=== PATIENT | female | born 1995 | race Two or more races ===

== ENCOUNTER 2017-03-14 08:12 | Emergency (ER) | payer MEDICAID, OTHER, SELFPAY ==
[2017-03-14] MEDS ORDERED: Ketorolac 30 MG/ML SDV IVPUSH ONE (08:58)
[2017-03-14] MEDS ORDERED: Lactated Ringers 1,000 ML IV ONE (08:59)
--- NOTE | 2017-03-14 09:06 | EDM.PDOC ---
ED HPI GENERAL MEDICAL PROBLEM - General Chief Complaint: Syncope Stated Complaint: FAINTED Time Seen by Provider: 03/14/17 08:50 Source of Information: Reports: Patient History Limitations: Reports: No Limitations - History of Present Illness INITIAL COMMENTS - FREE TEXT/NARRATIVE: 21 yo female awoke with a headache. 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 At work she fainted twice in close succession. Had nausea without vomiting. No nausea now. Denies recent fever or diarrhea. Was more fatigued than normal yesterday, otherwise normal. Has a hx of anemia. The 2nd time she fell today she hit her R occiput. Recalls her vision closing in on her both times before passing out. Was sweaty upon awakening. Headache is a 7/ 10 at this time. Last menses ended yesterday. Did eat breakfast today. CUEVAS is not worse after falling and hitting her head. 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 Frontal Head Pain Score (Numeric/FACES): 7 - Related Data Allergies Allergy/AdvReac Type Severity Reaction Status Date / Time No Known Allergies Allergy Verified 03/14/17 08:19 Home Meds: Home Meds Acetaminophen [Tylenol Extra Strength] 1,000 mg PO ASDIRECTED PRN 03/14/17 [ History] Past Medical History - Past Health History Medical/Surgical History: Denies Medical/Surgical History 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: , 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 Other OB/BYN History: when she was 16 - Infectious Disease History Infectious Disease History: Reports: Chicken pox - Past Surgical History HEENT Surgical History: Reports: Oral surgery Social & Family History - Family History Family Medical History: Noncontributory OBGYN: Reports: Psychiatric: Reports: ADHD Other Psychiatric Family History: brother has ADHD Other Endocrine/Metabolic Family History: mom side has diabetest but unsure what type - Tobacco Use Smoking Status *Q: Current Every Day Smoker Years of Tobacco use: 3 Packs/Tins Daily: 0.5 Used Tobacco, but Quit: No Second Hand Smoke Exposure: Yes - Caffeine Use Caffeine Use: Reports: None - Alcohol Use Days Per Week of Alcohol Use: 2 Number of Drinks Per Day: 4 Total Drinks Per Week: 8 - Recreational Drug Use Recreational Drug Use: No ED ROS GENERAL - Review of Systems Review Of Systems: See Below Constitutional: Reports: No Symptoms HEENT: Reports: No Symptoms Respiratory: Reports: No Symptoms Cardiovascular: Reports: Lightheadedness Endocrine: Reports: No Symptoms GI/Abdominal: Reports: No Symptoms : Reports: No Symptoms Musculoskeletal: Reports: No Symptoms Skin: Reports: No Symptoms Neurological: Reports: Headache - Physical Exam Exam: See Below Exam Limited By: No Limitations General Appearance: Alert, WD/WN, No Apparent Distress Eye Exam: bilateral eye: EOMI, normal inspection, PERRL Ears: Normal External Exam, Normal Canal, Hearing Grossly Normal, Normal TMs Nose: Normal Inspection, Normal Mucosa, No Blood Throat/Mouth: Normal inspection, Normal lips, Normal teeth, Normal oropharynx, Normal voice, No airway compromise Head Exam: normocephalic, scalp hematoma (small over occiput on the right side.) Neck: Normal Inspection, Supple, Other (minimal stiffness) Respiratory/Chest: No Respiratory Distress, Lungs Clear, Normal Breath Sounds, No Accessory Muscle Use Cardiovascular: Regular Rate, Rhythm, No Edema GI/Abdominal: Normal Bowel Sounds, Soft, Non-Tender, No Distention Neuro Exam (Abbreviated): alert, oriented, CN II-XII intact, normal cognition, normal gait, normal reflexes, no motor/sensory deficits, other (small bump R occiput on palpation.) Back Exam: normal inspection, full range of motion. No: CVA tenderness (R), CVA tenderness (L) Extremities: normal inspection, normal range of motion, non-tender, no pedal edema Psychiatric: normal affect, normal mood Skin Exam: Warm, Dry, Intact, Normal color, No rash Course - Vital Signs Text/Narrative:: LR 1000 ml IV, Toradol 30 mg IV-CUEVAS minimally improved. Tramadol 100 mg po given with improvement in CUEVAS Head CT-negative. principal product manager reveals a sinus arrhythmia with HR's from upper 40's to 60 at rest. Asymptomatic with this. Urine noted per nursing to be clear and dilute(colorless). Orthostats after a liter of LR-21 point increase in HR going from lying to standing noted. Last Recorded V/S: Last Vital Signs Temp 36.5 C 03/14/17 08:21 Pulse 53 L 03/14/17 11:09 Resp 15 03/14/17 11:09 BP 91/50 L 03/14/17 11:09 Pulse Ox 99 03/14/17 11:09 Orthostatic Blood Pressure [ 111/76 Standing] Orthostatic Blood Pressure [ 94/63 Sitting] Orthostatic Blood Pressure [ 123/68 Supine] - Orders/Labs/Meds Orders: Active Orders 24 hr Category Date Time Status Accu Check [Blood Glucose Check, Bedside] [RC] ONETIME Care 03/14/17 08:58 Active Orthostatic Vital Signs [RC] ASDIRECTED Care 03/14/17 09:57 Active Head wo Cont [CT] Stat Exams 03/14/17 10:21 Taken Labs: Laboratory Tests 03/14/17 03/14/17 03/14/17 Range/Units 09:07 09:10 09:10 Hgb 14.0 (11.5-15.5) g/dL Sodium 139 (135-145) mmol/L Potassium 3.9 (3.5-5.3) mmol/L Chloride 105 D (100-110) mmol/L Carbon Dioxide 25 (23-29) mmol/L BUN 19 (5-20) mg/dL Creatinine 0.6 (0.6-1.3) mg/dL Est Cr Clr Drug Dosing 106.53 mL/min Estimated GFR (MDRD) > 60 (>60) BUN/Creatinine Ratio 31.7 H (9-20) Glucose 99 (80-116) mg/dL POC Glucose (80-116) mg/dL Calcium 9.5 (8.6-10.2) mg/dL Urine HCG, Qual Negative (NEGATIVE) 03/14/17 Range/Units 09:14 Hgb (11.5-15.5) g/dL Sodium (135-145) mmol/L Potassium (3.5-5.3) mmol/L Chloride (100-110) mmol/L Carbon Dioxide (23-29) mmol/L BUN (5-20) mg/dL Creatinine (0.6-1.3) mg/dL Est Cr Clr Drug Dosing mL/min Estimated GFR (MDRD) (>60) BUN/Creatinine Ratio (9-20) Glucose (80-116) mg/dL POC Glucose 102 (80-116) mg/dL Calcium (8.6-10.2) mg/dL Urine HCG, Qual (NEGATIVE) Meds: Medications Discontinued Medications Generic Name Dose Route Start Last Admin Trade Name [place] PRN Reason Stop Dose Admin Lactated Ringer's 1,000 mls @ 1,000 mls/hr 03/14/17 08:59 03/14/17 09:23 Ringers, Lactated IV 03/14/17 09:58 1,000 mls/hr BOLUS ONE Administration Ketorolac Tromethamine 30 mg 03/14/17 08:58 03/14/17 09:30 Toradol IVPUSH 03/14/17 08:59 30 mg ONETIME ONE Administration Tramadol HCl 100 mg 03/14/17 10:53 03/14/17 11:07 Ultram PO 03/14/17 10:54 100 mg ONETIME ONE Administration Departure - Departure Time of Disposition: 12:00 Disposition: Home, Self-Care 01 Condition: good Clinical Impression: Orthostasis Headache Qualifiers: Headache type: unspecified Headache chronicity pattern: acute headache Intractability: not intractable Qualified Code(s): R51 - Headache - Discharge Information Forms: ED Department Discharge - My Orders Last 24 Hours: My Active Orders 03/14/17 08:58 Accu Check [Blood Glucose Check, Bedside] [RC] ONETIME 03/14/17 09:57 Orthostatic Vital Signs [RC] ASDIRECTED 03/14/17 10:21 Head wo Cont [CT] Stat - Assessment/Plan Last 24 Hours: My Active Orders 03/14/17 08:58 Accu Check [Blood Glucose Check, Bedside] [RC] ONETIME 03/14/17 09:57 Orthostatic Vital Signs [RC] ASDIRECTED 03/14/17 10:21 Head wo Cont [CT] Stat
[2017-03-14] MEDS ORDERED: traMADol 50 MG Tab PO ONE (10:53)
[2017-03-14 11:45] VITALS: BP 96/57
--- NOTE | 2017-03-18 09:48 | CT ---
INDICATION: Headache with syncope. CT HEAD WITHOUT CONTRAST: Serial contiguous 2.5 and 5 mm sections were obtained through the brain without contrast only revealing no shift of midline structures, ventricular abnormalities, or abnormal areas of density. No abnormality of the cranium was identified. Visualized paranasal sinuses appeared clear. IMPRESSION: Normal CT of the brain without contrast only. If symptoms persist, additional examination such as CT head with contrast or MRI may be of further diagnostic benefit. Total exam DLP = 845.81 mGy-cm. Report was called to Dr. Phillip soon after the examination was completed, 2016. [facility]
== END 2017-03-14 13:00 | disposition home or self-care (01) ==
LOC: FB.ED 08:12
DX: R51 Headache (principal); F17.210 Nicotine dependence, cigarettes, uncomplicated; Z98.890 Other specified postprocedural states
CPT/HCPCS: 36415; 70450; 80048; 81025; 82962; 85018; 96361; 96374; 99284; A9270; J1885; J7120

== ENCOUNTER 2017-08-22 03:26 | Emergency (ER) | payer SELFPAY ==
--- NOTE | 2017-08-22 04:08 | EDM.PDOC ---
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 AB1. No trauma. vag bleed started spontaneously. No N/V/D or dizziness. No other acute medical issues. BP 131/78 pulse 81, RR 18 Temp 36.5 Pulse ox 100 on RA Onset: Sudden Onset Date: 08/21/17 Onset Time: 22:00 Duration: Hour(s):, Intermittent Location: Reports: Pelvis Quality: Reports: Pressure Severity: Mild Improves with: Reports: Rest Worsens with: Reports: Movement Context: Reports: Other () Associated Symptoms: Reports: No Other Symptoms Lower abdomen Pain Score (Numeric/FACES): 4 - Related Data Allergies Allergy/AdvReac Type Severity Reaction Status Date / Time No Known Allergies Allergy Verified 08/22/17 03:35 Home Meds: Home Meds Acetaminophen [Tylenol Extra Strength] 1,000 mg PO ASDIRECTED PRN 03/14/17 [ History] Vit #76/Iron,Carb/Fa [Prenatabs Rx] 1 tab DAILY 08/22/17 [History] Vitamin B6-pyridOXINE 100 mg PO DAILY 08/22/17 [History] diphenhydrAMINE HCl [Benadryl] 25 mg PO BEDTIME 08/22/17 [History] diphenhydrAMINE HCl [Unisom] 50 mg PO BEDTIME PRN 08/22/17 [History] Past Medical History - Past Health History Medical/Surgical History: Denies Medical/Surgical History 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 - Infectious Disease History Infectious Disease History: Reports: Chicken Pox - Past Surgical History HEENT Surgical History: Reports: Oral Surgery Musculoskeletal Surgical History: Reports: None Social & Family History - Family History Family Medical History: Noncontributory OBGYN: Reports: Psychiatric: Reports: ADHD Other Psychiatric Family History: brother has ADHD Other Endocrine/Metabolic Family History: mom side has diabetest but unsure what type - Tobacco Use Smoking Status *Q: Former Smoker Years of Tobacco use: 2 Packs/Tins Daily: 0.5 Used Tobacco, but Quit: Yes Month Tobacco Last Used: nov Second Hand Smoke Exposure: Yes - Caffeine Use Caffeine Use: Reports: Tea - Alcohol Use Days Per Week of Alcohol Use: 2 Number of Drinks Per Day: 4 Total Drinks Per Week: 8 - Recreational Drug Use Recreational Drug Use: No ED ROS GENERAL - Review of Systems Review Of Systems: See Below Constitutional: Reports: No Symptoms HEENT: Reports: No Symptoms Respiratory: Reports: No Symptoms Cardiovascular: Reports: No Symptoms Endocrine: Reports: No Symptoms GI/Abdominal: Reports: No Symptoms : Reports: No Symptoms Musculoskeletal: Reports: No Symptoms Skin: Reports: No Symptoms Neurological: Reports: No Symptoms Psychiatric: Reports: No Symptoms Hematologic/Lymphatic: Reports: No Symptoms Immunologic: Reports: No Symptoms ED EXAM - Physical Exam Exam: See Below Exam Limited By: No Limitations General Appearance: Alert, WD/WN, Mild Distress Eye Exam: Bilateral Eye: Normal Inspection Ears: Normal External Exam Nose: Normal Inspection Throat/Mouth: Normal Inspection, Normal Lips, Normal Teeth Head: Atraumatic, Normocephalic Neck: Normal Inspection, Supple, Non-Tender Respiratory/Chest: No Respiratory Distress, Lungs Clear, Normal Breath Sounds Cardiovascular: Normal Peripheral Pulses, Regular Rate, Rhythm, No Edema, No Gallop GI/Abdominal Exam: Normal Bowel Sounds, Soft, Non-Tender Rectal Exam: Deferred (Female) Exam: Normal External Exam, Deferred for Placenta Previa, Vaginal Bleeding Heart Tones: Not [place] Back Exam: Normal Inspection, Full Range of Motion Extremities: Normal Inspection, Normal Range of Motion, Non-Tender, No Pedal Edema Neurological: Alert, Oriented, CN II-XII Intact, Normal Cognition, Normal Gait Psychiatric: Normal Affect, Normal Mood Skin Exam: Warm, Dry, Intact, Normal Color, No Rash Lymphatic: No Adenopathy Course - Vital Signs Text/Narrative:: 22 y.o.w.f came to the ed due to painful vag bleed LNMP June 21. AB1. No trauma. vag bleed started spontaneously. No N/V/D or dizziness. No other acute medical issues. BP 131/78 pulse 81, RR 18 Temp 36.5 Pulse ox 100 on RA PE: WNWD F with painful vag bleed 9 wks , FHT not obtained. Pelvic exam: Nl introitus, CMT not checked due to pos.placenta previa. Cervical ass is closed, active cervical bleed. Labs: CBC Nl, INR Nl, Na 138 and K 3.6 nl HCG quant: > Impression: Threatening miscarriage, painful vag bleed Tx: Vicodin Reexam: Improved Plan: Pelvic US in am, not available now, D/C with instructions Last Recorded V/S: Last Vital Signs Temp 36.5 C 08/22/17 03:26 Pulse 81 08/22/17 03:26 Resp 18 08/22/17 04:49 BP 102/58 L 08/22/17 04:49 Pulse Ox 100 08/22/17 04:49 - Orders/Labs/Meds Labs: Laboratory Tests 08/22/17 08/22/17 08/22/17 Range/Units 03:50 03:50 03:50 WBC 8.1 (4.5-12.0) X10-3/uL RBC 4.60 (3.23-5.20) x10(6)uL Hgb 13.4 (11.5-15.5) g/dL Hct 39.9 (30.0-51.3) % MCV 86.8 (80-96) fL MCH 29.1 (27.7-33.6) pg MCHC 33.6 (32.2-35.4) g/dL RDW 12.4 (11.5-15.5) % Plt Count 312 (125-369) X10(3)uL MPV 9.4 (7.4-10.4) fL Neut % (Auto) 55.4 (46-82) % Lymph % (Auto) 34.8 (13-37) % [place] % (Auto) 7.4 (4-12) % Eos % (Auto) 1 (1.0-5.0) % Baso % (Auto) 1 (0-2) % Neut # (Auto) 4.5 (1.6-8.3) # Lymph # (Auto) 2.8 (0.6-5.0) # [place] # (Auto) 0.6 (0.0-1.3) # Eos # (Auto) 0.1 (0.0-0.8) # Baso # (Auto) 0.1 (0.0-0.2) # PT 10.5 (8.7-11.1) INR 1.04 (0.89-1.13) Sodium 138 (135-145) mmol/L Potassium 3.6 (3.5-5.3) mmol/L Chloride 108 (100-110) mmol/L Carbon Dioxide 20 L (23-29) mmol/L BUN 14 (5-20) mg/dL Creatinine 0.6 (0.6-1.3) mg/dL Est Cr Clr Drug Dosing 105.64 mL/min Estimated GFR (MDRD) > 60 (>60) BUN/Creatinine Ratio 23.3 H (9-20) Glucose 107 (80-116) mg/dL Calcium 9.3 (8.6-10.2) mg/dL HCG, Quant (2.0 - ) mIU/mL 08/22/17 Range/Units 03:50 WBC (4.5-12.0) X10-3/uL RBC (3.23-5.20) x10(6)uL Hgb (11.5-15.5) g/dL Hct (30.0-51.3) % MCV (80-96) fL MCH (27.7-33.6) pg MCHC (32.2-35.4) g/dL RDW (11.5-15.5) % Plt Count (125-369) X10(3)uL MPV (7.4-10.4) fL Neut % (Auto) (46-82) % Lymph % (Auto) (13-37) % [place] % (Auto) (4-12) % Eos % (Auto) (1.0-5.0) % Baso % (Auto) (0-2) % Neut # (Auto) (1.6-8.3) # Lymph # (Auto) (0.6-5.0) # [place] # (Auto) (0.0-1.3) # Eos # (Auto) (0.0-0.8) # Baso # (Auto) (0.0-0.2) # PT (8.7-11.1) INR (0.89-1.13) Sodium (135-145) mmol/L Potassium (3.5-5.3) mmol/L Chloride (100-110) mmol/L Carbon Dioxide (23-29) mmol/L BUN (5-20) mg/dL Creatinine (0.6-1.3) mg/dL Est Cr Clr Drug Dosing mL/min Estimated GFR (MDRD) (>60) BUN/Creatinine Ratio (9-20) Glucose (80-116) mg/dL Calcium (8.6-10.2) mg/dL HCG, Quant (2.0 - ) mIU/mL Meds: Medications Discontinued Medications Generic Name Dose Route Start Last Admin Trade Name Freq PRN Reason Stop Dose Admin Hydrocodone Bitart/Acetaminophen 1 tab 08/22/17 04:16 08/22/17 04:24 [place] 325-5 Mg PO 08/22/17 04:17 1 tab ONETIME ONE Administration Departure - Departure Time of Disposition: 04:38 Disposition: Home, Self-Care 01 Condition: Good Clinical Impression: Vagina bleeding, Miscarriage, threatened, early - Discharge Information Instructions: Threatened Miscarriage, [id number] Referrals: PCP,None [Primary Care Provider] - Forms: ED Department Discharge Additional Instructions: Pelvic rest. Vicodin for severe pain every 4 hours as needed, for mild to moderate pain, may take Tylenol 650mg every 4 hours as needed (No more than 6 tablets/24hrs). Pelvic US in am, Xray dept will call you with time. Please follow up with your regular MD at clinic after ultrasound, call for appt. Please come back to the ed if your symptoms get worse acutely.
[2017-08-22] MEDS ORDERED: Acetaminophen/HYDROcodone 325-5 MG Tab PO ONE ×2 (04:16→04:23)
[2017-08-22 04:50] VITALS: BP 102/58
== END 2017-08-22 05:06 | disposition home or self-care (01) ==
LOC: FB.ED 03:26
DX: O20.0 Threatened abortion (principal); Z3A.09 9 weeks gestation of pregnancy; Z87.891 Personal history of nicotine dependence
CPT/HCPCS: 36415; 80048; 84702; 85025; 85610; 99284; A9270

== ENCOUNTER 2017-08-22 10:45 | Emergency (ER) | payer SELFPAY ==
--- NOTE | 2017-08-22 11:04 | EDM.PDOC ---
ED HPI GENERAL MEDICAL PROBLEM - General Stated Complaint: MISCARRIAGE Time Seen by Provider: 08/22/17 10:45 Source of Information: Reports: Patient, Family - History of Present Illness Onset: Today Onset Date: 08/21/17 Onset Time: 22:00 Duration: Hour(s):, Getting Worse Location: Reports: Pelvis Quality: Reports: Dull, Pressure, Throbbing Severity: Moderate Improves with: Reports: Rest Worsens with: Reports: Movement Context: Reports: Other () Associated Symptoms: Reports: No Other Symptoms - Related Data Allergies Allergy/AdvReac Type Severity Reaction Status Date / Time No Known Allergies Allergy Verified 08/22/17 11:03 Home Meds: Home Meds Hydrocodone/Acetaminophen [Vicodin 5-300 mg Tablet] 1 each PO 08/22/17 [History] Past Medical History - Past Health History Medical/Surgical History: Denies 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 - Infectious Disease History Infectious Disease History: Reports: Chicken Pox - Past Surgical History HEENT Surgical History: Reports: Oral Surgery Musculoskeletal Surgical History: Reports: None Social & Family History - Family History Family Medical History: Noncontributory OBGYN: Reports: Psychiatric: Reports: ADHD Other Psychiatric Family History: brother has ADHD Other Endocrine/Metabolic Family History: mom side has diabetest but unsure what type - Tobacco Use Smoking Status *Q: Former Smoker Years of Tobacco use: 2 Packs/Tins Daily: 0.5 Used Tobacco, but Quit: Yes Month Tobacco Last Used: nov Second Hand Smoke Exposure: Yes - Caffeine Use Caffeine Use: Reports: Tea - Alcohol Use Days Per Week of Alcohol Use: 2 Number of Drinks Per Day: 4 Total Drinks Per Week: 8 - Recreational Drug Use Recreational Drug Use: No ED ROS GENERAL - Review of Systems Review Of Systems: See Below Constitutional: Reports: No Symptoms HEENT: Reports: No Symptoms Respiratory: Reports: No Symptoms Cardiovascular: Reports: No Symptoms Endocrine: Reports: No Symptoms GI/Abdominal: Reports: No Symptoms : Reports: Pain (vag bleed with pain) Musculoskeletal: Reports: No Symptoms Skin: Reports: No Symptoms Neurological: Reports: No Symptoms Psychiatric: Reports: No Symptoms Hematologic/Lymphatic: Reports: No Symptoms Immunologic: Reports: No Symptoms ED EXAM - Physical Exam Exam: See Below Exam Limited By: No Limitations General Appearance: Alert, WD/WN, Moderate Distress Eye Exam: Bilateral Eye: Normal Inspection Ears: Normal External Exam Nose: Normal Inspection Throat/Mouth: Normal Inspection Head: Atraumatic, Normocephalic Neck: Normal Inspection, Supple Respiratory/Chest: No Respiratory Distress, Lungs Clear, Normal Breath Sounds Cardiovascular: Normal Peripheral Pulses, Regular Rate, Rhythm, No Edema GI/Abdominal Exam: Normal Bowel Sounds, Soft, Non-Tender, No Organomegaly Rectal Exam: Normal Exam, Deferred (Female) Exam: Deferred for Placenta Previa (see not e from this am) Heart Tones: Not [place] Back Exam: Normal Inspection, Full Range of Motion Extremities: Normal Inspection, Normal Range of Motion Neurological: Alert, Oriented, CN II-XII Intact, Normal Cognition, Normal Gait Psychiatric: Normal Affect, Normal Mood Skin Exam: Warm, Dry, Intact, Normal Color, No Rash Lymphatic: No Adenopathy Course - Vital Signs Text/Narrative:: 09.[address] Dumont, DEVOPS DEVELOPER: Will see her at the ED at [place] Last Recorded V/S: Last Vital Signs Temp 36.8 C 08/22/17 11:05 Pulse 72 08/22/17 11:05 Resp 16 08/22/17 11:05 BP 114/80 08/22/17 11:05 Pulse Ox 100 08/22/17 11:05 - Orders/Labs/Meds Meds: Medications Discontinued Medications Generic Name Dose Route Start Last Admin Trade Name Travisq PRN Reason Stop Dose Admin Hydrocodone Bitart/Acetaminophen 1 tab 08/22/17 11:14 08/22/17 11:18 [place] 325-5 Mg PO 08/22/17 11:15 1 tab ONETIME ONE Administration Departure - Departure Time of Disposition: 12:19 Disposition: DC/Tfer to Critical Access 66 Condition: Fair Clinical Impression: Vagina bleeding, Miscarriage, threatened, early Qualifiers: Weeks of gestation: less than 8 weeks Qualified Code(s): Z3A.01 - Less than 8 weeks gestation of - Discharge Information Referrals: Nohemi Leone PA-C [Primary Care Provider] - Additional Instructions: You refused to go by EMS to the ED in [place]. Please go directly to the ED at [place], [place]. You will see Dr. Mikelson, OG/SEGMENT PRODUCER, Please no food till seen by the Doctor.
[2017-08-22] MEDS ORDERED: Acetaminophen/HYDROcodone 325-5 MG Tab PO ONE (11:14)
[2017-08-22 13:29] VITALS: BP 105/65
== END 2017-08-22 12:25 | disposition critical access hospital (66) ==
LOC: FB.ED 10:45
DX: O20.0 Threatened abortion (principal); Z3A.01 Less than 8 weeks gestation of pregnancy
CPT/HCPCS: 99284; A9270; 99285

== ENCOUNTER 2019-02-24 20:50 | Emergency (ER) | payer SELFPAY ==
[2019-02-24] MEDS ORDERED: Sodium Chloride 0.9% 1,000 ML IV ONE (21:15)
[2019-02-24] MEDS ORDERED: diphenhydrAMINE 50 MG/ML SDV IVPUSH ONE (21:15)
[2019-02-24] MEDS ORDERED: Prochlorperazine 10 MG in Sodium Chloride 0.9% 50 ML IV ONE (21:15)
[2019-02-24] MEDS ORDERED: Sodium Chloride 0.9% 10 ML Syringe FLUSH PRN (21:15)
--- NOTE | 2019-02-24 21:15 | EDM.PDOC ---
ED HPI GENERAL MEDICAL PROBLEM - General Chief Complaint: Gastrointestinal Problem Stated Complaint: 9 WEEK NAUSEA VOMITING Time Seen by Provider: 02/24/19 21:00 Source of Information: Reports: Patient History Limitations: Reports: No Limitations - History of Present Illness INITIAL COMMENTS - FREE TEXT/NARRATIVE: 23-year-old 3 para 0 AB 2 who reports she is approximately 9 weeks (this was confirmed test and by an ultrasound that was performed at 6 weeks ) and presents with nausea and vomiting beginning yesterday afternoon. She reports she's had vomiting 5 today. She's had no vaginal discharge or vaginal bleeding. She's had no abdominal pain. She rates her pain as a 0/10. She's had some intermittent dizziness. No syncope or presyncope. She states that she had a similar type episode a few weeks ago and she was seen at [facility] emergency department in [place] and was treated with IV fluids and by an oral dissolving tablet of what sounds like Zofran. She reports that she has not really been able to keep much down either liquids or solids for the past day and a half. She's had no fevers or chills. She's had no dysuria. No dizziness now. No headache. No back pain. There are no other associated signs or symptoms. There are no other modifying factors. 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 - Infectious Disease History Infectious Disease History: Reports: Chicken Pox - Past Surgical History HEENT Surgical History: Reports: Oral Surgery Female Surgical History: Reports: Dilitation & Evacuation (Times one) Musculoskeletal Surgical History: Reports: None Social & Family History - Family History Other Psychiatric Family History: brother has ADHD Endocrine/Metabolic: Reports: Diabetes, type II Other Endocrine/Metabolic Family History: On mother's side of the family - Tobacco Use Smoking Status *Q: Never Smoker Second Hand Smoke Exposure: No - Caffeine Use Caffeine Use: Reports: None - Alcohol Use Alcohol Use History: No - Recreational Drug Use Recreational Drug Use: No - Living Situation & Occupation Social History Comment: She is here with her significant other/. ED ROS GENERAL - Review of Systems Review Of Systems: See Below Constitutional: Reports: No Symptoms HEENT: Reports: No Symptoms Respiratory: Reports: No Symptoms Cardiovascular: Reports: No Symptoms Endocrine: Reports: No Symptoms GI/Abdominal: Reports: Nausea, Vomiting : Reports: No Symptoms, Other (No vaginal bleeding.). Denies: Dysuria, Hematuria Musculoskeletal: Reports: No Symptoms Skin: Reports: No Symptoms Neurological: Reports: Dizziness (Intermittent) Hematologic/Lymphatic: Reports: No Symptoms Immunologic: Reports: No Symptoms ED EXAM, GI/ABD - Physical Exam Exam: See Below Exam Limited By: No Limitations General Appearance: Alert, WD/WN, Mild Distress Eyes: Bilateral: Normal Appearance, EOMI Ears: Normal External Exam, Hearing Grossly Normal Nose: Normal Inspection, Normal Mucosa Throat/Mouth: Normal Teeth, Normal Voice, No Airway Compromise, Other (Mildly tacky mucous membranes) Head: Atraumatic, Normocephalic Neck: Normal Inspection, Supple, Non-Tender, Full Range of Motion Respiratory/Chest: No Respiratory Distress, Lungs Clear, Normal Breath Sounds, No Accessory Muscle Use, Chest Non-Tender Cardiovascular: Normal Peripheral Pulses, No JVD, No Murmur, Tachycardia (Mild) GI/Abdominal Exam: Normal Bowel Sounds, Soft, Non-Tender, No Organomegaly, No Distention, No Mass Back Exam: Normal Inspection. No: CVA Tenderness (R), CVA Tenderness (L) Extremities: Normal Inspection, Normal Range of Motion, Non-Tender, No Pedal Edema, Normal Capillary Refill Neurological: Alert, Oriented, CN II-XII Intact, Normal Cognition, No Motor/ Sensory Deficits Psychiatric: Normal Mood Skin Exam: Warm, Dry, Intact, Normal Color, No Rash Lymphatic: No Adenopathy Course - Vital Signs Last Recorded V/S: Last Vital Signs Temp 36.9 C 02/24/19 22:45 Pulse 92 02/24/19 22:45 Resp 18 02/24/19 22:45 BP 126/80 02/24/19 22:45 Pulse Ox 98 02/24/19 22:45 - Orders/Labs/Meds Orders: Active Orders 24 hr Category Date Time Status Peripheral IV Insertion Adult [OM.PC] Routine Oth 02/24/19 21:15 Ordered Labs: Laboratory Tests 02/24/19 02/24/19 Range/Units 21:39 21:39 WBC 9.3 (4.5-12.0) X10-3/uL RBC 4.62 (3.23-5.20) x10(6)uL Hgb 14.0 (11.5-15.5) g/dL Hct 40.1 (30.0-51.3) % MCV 86.8 (80-96) fL MCH 30.2 (27.7-33.6) pg MCHC 34.8 (32.2-35.4) g/dL RDW 12.9 (11.5-15.5) % Plt Count 325 (125-369) X10(3)uL MPV 9.1 (7.4-10.4) fL Neut % (Auto) 74.6 (46-82) % Lymph % (Auto) 18.8 (13-37) % [place] % (Auto) 4.9 (4-12) % Eos % (Auto) 0 L (1.0-5.0) % Baso % (Auto) 1 (0-2) % Neut # (Auto) 6.9 (1.6-8.3) # Lymph # (Auto) 1.7 (0.6-5.0) # [place] # (Auto) 0.5 (0.0-1.3) # Eos # (Auto) 0.0 (0.0-0.8) # Baso # (Auto) 0.1 (0.0-0.2) # Sodium 137 (135-145) mmol/L Potassium 3.4 L (3.5-5.3) mmol/L Chloride 102 (100-110) mmol/L Carbon Dioxide 21 (21-32) mmol/L BUN 19 H (7-18) mg/dL Creatinine 0.6 (0.55-1.02) mg/dL Est Cr Clr Drug Dosing TNP Estimated GFR (MDRD) > 60 (>60) BUN/Creatinine Ratio 31.7 H (9-20) Glucose 98 (80-116) mg/dL Calcium 9.0 (8.6-10.2) mg/dL Magnesium 1.8 (1.8-2.5) mg/dL Total Bilirubin 0.9 (0.1-1.3) mg/dL AST 23 (5-25) IU/L ALT 62 H (12-36) U/L Alkaline Phosphatase 100 (56-112) IU/L Total Protein 7.7 (6.0-8.0) g/dL Albumin 3.8 (3.5-5.2) g/dL Globulin 3.9 g/dL Albumin/Globulin Ratio 1.0 Meds: Medications Discontinued Medications Generic Name Dose Route Start Last Admin Trade Name Freq PRN Reason Stop Dose Admin Diphenhydramine HCl 25 mg 02/24/19 21:15 02/24/19 21:51 Benadryl IVPUSH 02/24/19 21:16 25 mg ONETIME ONE Administration Prochlorperazine Edisylate 10 52 mls @ 150 mls/hr 02/24/19 21:15 02/24/19 21: 45 mg/ Sodium Chloride IV 02/24/19 21:35 150 mls/hr ONETIME ONE Administration Sodium Chloride 1,000 mls @ 999 mls/hr 02/24/19 21:15 02/24/19 21:45 Normal Saline IV 02/24/19 22:15 999 mls/hr .BOLUS ONE Administration Sodium Chloride 10 ml 02/24/19 21:15 Saline Flush FLUSH ASDIRECTED PRN Keep Vein Open - Re-Assessments/Exams Free Text/Narrative Re-Assessment/Exam: 02/24/19 22:05: Laboratory tests are reassuring. The patient has received the Compazine and the Benadryl and her nausea is essentially gone. No more vomiting. There is still proximally 750 mL's of normal saline to be infused. The plan will be to continue this infusion until all has been given. Then, the patient will be discharged with prescription for Compazine. She is to drink small amounts of fluids frequently and she can try bland such as crackers and dry cereal and she should take small amounts of this frequently as well. She is to keep her follow-up appointment with doctor on 02/27/2019. Departure - Departure Time of Disposition: 22:45 Disposition: Home, Self-Care 01 Condition: Good Clinical Impression: Hyperemesis gravidarum with dehydration, 9 weeks gestation of - Discharge Information Prescriptions: Prochlorperazine Maleate [Compazine] 1 - 2 tab PO Q6HR PRN #24 tablet PRN Reason: Nausea/Vomiting Instructions: Eating Plan for Hyperemesis Gravidarum, Hyperemesis Gravidarum, Dehydration, Adult, [id number], Morning Sickness Referrals: PCP,None [Primary Care Provider] - Forms: ED Department Discharge Additional Instructions: Your blood tests were reassuring. You appear to have had only mild dehydration. You should rest. You should drink small amounts of fluids frequently. I have given you several handouts on vomiting associated with and hyperemesis gravidarum. Medication as prescribed (Compazine 5 mg). You may crush the tablet and dissolve it in a small amount of juice or other liquid to take orally. Back to the emergency department for abdominal pain, vaginal bleeding, unrelenting vomiting or any other concerning sign or symptoms. - My Orders Last 24 Hours: My Active Orders 02/24/19 21:15 Peripheral IV Insertion Adult [OM.PC] Routine - Assessment/Plan Last 24 Hours: My Active Orders 02/24/19 21:15 Peripheral IV Insertion Adult [OM.PC] Routine
[2019-02-24 23:04] VITALS: BP 126/80
== END 2019-02-24 23:00 | disposition home or self-care (01) ==
LOC: FB.ED 20:50
DX: O21.1 Hyperemesis gravidarum with metabolic disturbance (principal); Z3A.09 9 weeks gestation of pregnancy
CPT/HCPCS: 36415; 80053; 83735; 85025; 96361; 96365; 96375; 99283-25; J0780; J1200; J7030; J7050

== ENCOUNTER 2020-06-14 01:20 | Emergency (ER) | payer MEDICAID ==
[2020-06-14] MEDS ORDERED: Ondansetron 4 MG/2 ML SDV IVPUSH ONE (01:41)
[2020-06-14] MEDS ORDERED: HYDROmorphone 2 MG/ML SDV IVPUSH STA (01:41)
[2020-06-14] MEDS ORDERED: Sodium Chloride 0.9% 1,000 ML IV SCH (01:45)
[2020-06-14] MEDS: Sodium Chloride 0.9% 10 ML Syringe FLUSH PRN ×2 (02:24→04:05)
--- NOTE | 2020-06-14 03:52 | EDM.PDOC ---
ED HPI GENERAL MEDICAL PROBLEM - General Chief Complaint: Gastrointestinal Problem Stated Complaint: ABDOMINAL PAIN;GALL BLADDER Time Seen by Provider: 06/14/20 01:20 Source of Information: Reports: Patient History Limitations: Reports: No Limitations - History of Present Illness INITIAL COMMENTS - FREE TEXT/NARRATIVE: Patient presented to the ED because of RUQ pain which started 1 week ago. The pain is sharp and cramping, 10/10 , radiating to the right shoulder. There is associated nausea but no vomiting. He was seen in her PMD clinic several days ago and is scheduled to have an US this coming Saturday. 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 - Infectious Disease History Infectious Disease History: Reports: Chicken Pox - Past Surgical History HEENT Surgical History: Reports: Oral Surgery Female Surgical History: Reports: Dilitation & Evacuation Musculoskeletal Surgical History: Reports: None Social & Family History - Family History Family Medical History: Noncontributory OBGYN: Reports: Psychiatric: Reports: ADHD Other Psychiatric Family History: brother has ADHD Endocrine/Metabolic: Reports: Diabetes, type II Other Endocrine/Metabolic Family History: On mother's side of the family - Tobacco Use Smoking Status *Q: Former Smoker Used Tobacco, but Quit: Yes Month/Year Tobacco Last Used: 06/2018 - Caffeine Use Caffeine Use: Reports: Soda - Recreational Drug Use Recreational Drug Use: No ED ROS GENERAL - Review of Systems Review Of Systems: See Below Constitutional: Reports: No Symptoms HEENT: Reports: No Symptoms Respiratory: Reports: No Symptoms Cardiovascular: Reports: No Symptoms Endocrine: Reports: No Symptoms GI/Abdominal: Reports: Abdominal Pain, Nausea : Reports: No Symptoms Musculoskeletal: Reports: No Symptoms Skin: Reports: No Symptoms ED EXAM, GI/ABD - Physical Exam Exam: See Below Exam Limited By: No Limitations General Appearance: Alert, No Apparent Distress Ears: Normal External Exam, Normal Canal, Hearing Grossly Normal Nose: Normal Inspection, Normal Mucosa Throat/Mouth: Normal Inspection, Normal Lips, Normal Teeth, Normal Gums Head: Atraumatic, Normocephalic Neck: Normal Inspection, Supple, Non-Tender, Full Range of Motion Respiratory/Chest: No Respiratory Distress, Lungs Clear, Normal Breath Sounds Cardiovascular: Normal Peripheral Pulses, Regular Rate, Rhythm, No Edema, No Gallop GI/Abdominal Exam: Normal Bowel Sounds, Soft, Other (RUQ T, Mosley's-pos) Back Exam: Normal Inspection, Full Range of Motion Course - Vital Signs Text/Narrative:: Labs/CT abd/pelvis result was discussed with patient and verbalized full understanding NS 1 L bolus Zofran 4 mg IVx1 Dilaudid 1 mg IV x1 Toradol 30 mg IV x1 Last Recorded V/S: Last Vital Signs Temp 36.5 C 06/14/20 01:20 Pulse 57 L 06/14/20 04:11 Resp 14 06/14/20 04:11 BP 93/54 L 06/14/20 04:11 Pulse Ox 100 06/14/20 04:11 - Orders/Labs/Meds Orders: Active Orders 24 hr Category Date Time Status Abdomen Ltd [US] Stat Exams 06/14/20 01:38 Taken Saline Lock Insert [OM.PC] Routine Oth 06/14/20 01:38 Ordered Labs: Laboratory Tests 06/14/20 06/14/20 06/14/20 Range/Units 01:55 01:55 01:55 WBC 9.6 (4.5-12.0) X10-3/uL RBC 4.69 (3.23-5.20) x10(6)uL Hgb 12.9 (11.5-15.5) g/dL Hct 40.7 (30.0-51.3) % MCV 86.8 (80-96) fL MCH 27.5 L (27.7-33.6) pg MCHC 31.7 L (32.2-35.4) g/dL RDW 13.2 (11.5-15.5) % Plt Count 316 (125-369) X10(3)uL MPV 8.7 (7.4-10.4) fL Neut % (Auto) 54.6 (46-82) % Lymph % (Auto) 34.4 (13-37) % [place] % (Auto) 6.7 (4-12) % Eos % (Auto) 4 (1.0-5.0) % Baso % (Auto) 1 (0-2) % Neut # (Auto) 5.2 (1.6-8.3) # Lymph # (Auto) 3.3 (0.6-5.0) # [place] # (Auto) 0.6 (0.0-1.3) # Eos # (Auto) 0.3 (0.0-0.8) # Baso # (Auto) 0.1 (0.0-0.2) # Sodium 138 (135-145) mmol/L Potassium 3.7 (3.5-5.3) mmol/L Chloride 101 (100-110) mmol/L Carbon Dioxide 27 (21-32) mmol/L BUN 24 H (7-18) mg/dL Creatinine 0.8 (0.55-1.02) mg/dL Est Cr Clr Drug Dosing 77.89 mL/min Estimated GFR (MDRD) > 60 (>60) BUN/Creatinine Ratio 30.0 H (9-20) Glucose 106 (80-116) mg/dL Calcium 8.5 L (8.6-10.2) mg/dL Total Bilirubin 0.5 (0.1-1.3) mg/dL AST 39 H D (5-25) IU/L ALT 74 H D (12-36) U/L Alkaline Phosphatase 122 H (56-112) IU/L Total Protein 7.5 (6.0-8.0) g/dL Albumin 3.8 (3.5-5.2) g/dL Globulin 3.7 g/dL Albumin/Globulin Ratio 1.0 Amylase 30 (25-115) U/L Lipase 130 (73-393) U/L Meds: Medications Discontinued Medications Generic Name Dose Route Start Last Admin Trade Name Freq PRN Reason Stop Dose Admin Hydromorphone HCl 1 mg 06/14/20 01:41 06/14/20 02:15 Dilaudid IVPUSH 06/14/20 01:42 1 mg NOW STA Administration Sodium Chloride 1,000 mls @ 999 mls/hr 06/14/20 01:45 06/14/20 02:17 Normal Saline IV 999 mls/hr ASDIRECTED KURT Administration Ketorolac Tromethamine 30 mg 06/14/20 03:56 06/14/20 04:05 Toradol IVPUSH 06/14/20 03:57 30 mg NOW STA Administration Ondansetron HCl 4 mg 06/14/20 01:41 06/14/20 02:10 Zofran IVPUSH 06/14/20 01:42 4 mg ONETIME ONE Administration Sodium Chloride 10 ml 06/14/20 01:38 06/14/20 04:05 Saline Flush FLUSH 10 ml ASDIRECTED PRN Administration Keep Vein Open Departure - Departure Time of Disposition: 03:50 Disposition: Home, Self-Care 01 Condition: Good Clinical Impression: Cholelithiasis - Discharge Information Prescriptions: Ondansetron [Zofran ODT] 4 mg PO Q4H PRN #7 tab.dis PRN Reason: Nausea Instructions: Cholelithiasis, [id number] Referrals: PCP,None [Primary Care Provider] - Forms: ED Department Discharge Additional Instructions: Please read discharge isntructions for cholelithiasis avoid greasy or fatty foods take zofran ODT 4 mg every 4 hours as needed for nausea take norco, 1-2 tablets every 4-6 hours as needed for psim Follow up as needed Sepsis Event Note (ED) - Evaluation Sepsis Screening Result: No Definite Risk - Focused Exam Vital Signs: Vital Signs Temp Pulse Resp BP Pulse Ox 06/14/20 04:11 57 L 14 93/54 L 100 06/14/20 01:20 36.5 C 89 14 122/86 99 - My Orders Last 24 Hours: My Active Orders 06/14/20 01:38 Abdomen Ltd [US] Stat Saline Lock Insert [OM.PC] Routine - Assessment/Plan Last 24 Hours: My Active Orders 06/14/20 01:38 Abdomen Ltd [US] Stat Saline Lock Insert [OM.PC] Routine
[2020-06-14] MEDS ORDERED: Ketorolac 30 MG/ML SDV IVPUSH STA (03:56)
[2020-06-14 04:35] VITALS: BP 93/54; PULSE 57
== END 2020-06-14 04:23 | disposition home or self-care (01) ==
LOC: FB.ED 01:20
DX: K80.20 Calculus of gallbladder without cholecystitis without obstruction (principal); Z87.891 Personal history of nicotine dependence
CPT/HCPCS: 36415; 76705; 80053; 82150; 83690; 85025; 96361; 96374; 96375; 99284; J1170; J1885; J2405; J7030

== ENCOUNTER 2020-08-06 03:12 | Emergency (ER) | payer MEDICAID ==
[2020-08-06] MEDS ORDERED: Sodium Chloride 0.9% 1,000 ML IV ONE (03:28)
[2020-08-06] MEDS ORDERED: Ketorolac 30 MG/ML SDV IVPUSH ONE (03:42)
--- NOTE | 2020-08-06 03:53 | EDM.PDOC ---
ED HPI GENERAL MEDICAL PROBLEM - General Chief Complaint: Abdominal Pain Stated Complaint: ABDOMINAL PAIN Time Seen by Provider: 08/06/20 03:35 Source of Information: Reports: Patient History Limitations: Reports: No Limitations - History of Present Illness INITIAL COMMENTS - FREE TEXT/NARRATIVE: 2 month history of having gall stones . has had symptoms on and off with eating fatty foods. Developed pain in RUQ and epigastrium overnight , about 9/10 , radiates up to the right shoulder , no shortness of breath , no fever or chills she had ran out of pain medication . States she was not told about surgical option for treatment discussed with her possible surgical intervention since she is having more frequent and painful episodes' Agrees to surgical intervention Onset: Today Onset Date: 08/06/20 Onset Time: 00:30 Duration: Colic, Getting Worse, Recurring Location: Reports: Abdomen (RUQ and epigastrium) Quality: Reports: Ache, Dull, Throbbing Severity: Moderate Improves with: Reports: Heat Therapy Worsens with: Reports: Heat Therapy Context: Reports: Other (gall stones for the past 2 months) Associated Symptoms: Reports: Loss of Appetite, Malaise. Denies: Fever/Chills, Headaches, Nausea/Vomiting Treatments SHIP OFFICER: Denies: Heat Therapy Abdominal Pain Score (Numeric/FACES): 10 - Related Data Allergies Allergy/AdvReac Type Severity Reaction Status Date / Time No Known Allergies Allergy Verified 08/06/20 03:24 Home Meds: Home Meds Prochlorperazine Maleate [Compazine] 1 - 2 tab PO Q6HR PRN #24 tablet 02/24/19 [Rx] Ondansetron [Zofran ODT] 4 mg PO Q4H PRN #7 tab.dis 06/14/20 [Rx] Acetaminophen/HYDROcodone [[place] 325-5 MG] 1 tab PO Q4H PRN #20 tab 08/06/20 [Rx] Ondansetron [Zofran ODT] 4 mg PO Q6H PRN #30 tab.dis 08/06/20 [Rx] Past Medical History - Past Health History Medical/Surgical History: Denies Medical/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 - Infectious Disease History Infectious Disease History: Reports: Chicken Pox - Past Surgical History HEENT Surgical History: Reports: Oral Surgery Female Surgical History: Reports: Dilitation & Evacuation Musculoskeletal Surgical History: Reports: None Social & Family History - Family History Family Medical History: Noncontributory OBGYN: Reports: Psychiatric: Reports: ADHD Other Psychiatric Family History: brother has ADHD Endocrine/Metabolic: Reports: Diabetes, type II Other Endocrine/Metabolic Family History: On mother's side of the family - Caffeine Use Caffeine Use: Reports: Soda ED ROS GENERAL - Review of Systems Review Of Systems: See Below Constitutional: Reports: Malaise, Fatigue. Denies: Fever, Chills HEENT: Reports: No Symptoms Respiratory: Reports: No Symptoms Cardiovascular: Reports: No Symptoms Endocrine: Reports: No Symptoms GI/Abdominal: Reports: Abdominal Pain, Anorexia, Decreased Appetite, Distension, Flatus : Reports: No Symptoms Musculoskeletal: Reports: No Symptoms, Back Pain Skin: Reports: No Symptoms Neurological: Reports: Headache Psychiatric: Reports: No Symptoms Hematologic/Lymphatic: Reports: No Symptoms Immunologic: Reports: No Symptoms ED EXAM, GI/ABD - Physical Exam Exam: See Below Exam Limited By: No Limitations General Appearance: Alert, WD/WN, No Apparent Distress Eyes: Bilateral: EOMI Ears: Normal External Exam Nose: Normal Inspection Throat/Mouth: Normal Inspection, Normal Oropharynx Head: Atraumatic Neck: Supple, Non-Tender Respiratory/Chest: Lungs Clear, Normal Breath Sounds Cardiovascular: Regular Rate, Rhythm GI/Abdominal Exam: Soft, Distended, Tender (in the RUQ area , +Mosley's sign) Back Exam: Normal Inspection Extremities: Normal Inspection, Normal Range of Motion Neurological: Alert, Oriented, CN II-XII Intact, Normal Reflexes Psychiatric: Normal Affect Skin Exam: Warm, Dry, Intact Course - Vital Signs Last Recorded V/S: Last Vital Signs Temp 36.4 C 08/06/20 03:26 Pulse 51 L 08/06/20 05:51 Resp 14 08/06/20 05:51 BP 106/36 L 08/06/20 05:51 Pulse Ox 98 08/06/20 05:51 - Orders/Labs/Meds Orders: Active Orders 24 hr Category Date Time Status Abdomen Pelvis w Cont [CT] Stat Exams 08/06/20 03:46 Taken Labs: Laboratory Tests 08/06/20 08/06/2020 Range/Units 03:40 03:40 03:40 WBC 9.1 (4.5-12.0) X10-3/uL RBC 4.74 (3.23-5.20) x10(6)uL Hgb 13.2 (11.5-15.5) g/dL Hct 41.2 (30.0-51.3) % MCV 87.0 (80-96) fL MCH 27.9 (27.7-33.6) pg MCHC 32.0 L (32.2-35.4) g/dL RDW 13.6 (11.5-15.5) % Plt Count 291 (125-369) X10(3)uL MPV 8.9 (7.4-10.4) fL Neut % (Auto) 47.1 (46-82) % Lymph % (Auto) 42.0 H (13-37) % [place] % (Auto) 6.2 (4-12) % Eos % (Auto) 4 (1.0-5.0) % Baso % (Auto) 1 (0-2) % Neut # (Auto) 4.2 (1.6-8.3) # Lymph # (Auto) 3.8 (0.6-5.0) # [place] # (Auto) 0.6 (0.0-1.3) # Eos # (Auto) 0.4 (0.0-0.8) # Baso # (Auto) 0.1 (0.0-0.2) # Sodium 141 (135-145) mmol/L Potassium 3.8 (3.5-5.3) mmol/L Chloride 104 (100-110) mmol/L Carbon Dioxide 26 (21-32) mmol/L BUN 16 (7-18) mg/dL Creatinine 0.8 (0.55-1.02) mg/dL Est Cr Clr Drug Dosing 77.89 mL/min Estimated GFR (MDRD) > 60 (>60) BUN/Creatinine Ratio 20.0 (9-20) Glucose 133 H (80-116) mg/dL Calcium 8.8 (8.6-10.2) mg/dL C-Reactive Protein 0.7 (0.5-0.9) mg/dL Urine Color (YELLOW) Urine Appearance (CLEAR) Urine pH (5.0-6.5) Ur Specific [place] (1.010-1.025) Urine Protein (NEGATIVE) mg/dL Urine Glucose (UA) (NORMAL) mg/dL Urine Ketones (NEGATIVE) mg/dL Urine Occult Blood (NEGATIVE) Urine Nitrite (NEGATIVE) Urine Bilirubin (NEGATIVE) Urine Urobilinogen (NEGATIVE) mg/dL Ur Leukocyte Esterase (NEGATIVE) Urine RBC (0-5) Urine WBC (0-5) Ur Squamous Epith Cells (NS,R,O) Urine Bacteria (NS) Urine Mucus (NS) 08/06/20 Range/Units 04:00 WBC (4.5-12.0) X10-3/uL RBC (3.23-5.20) x10(6)uL Hgb (11.5-15.5) g/dL Hct (30.0-51.3) % MCV (80-96) fL MCH (27.7-33.6) pg MCHC (32.2-35.4) g/dL RDW (11.5-15.5) % Plt Count (125-369) X10(3)uL MPV (7.4-10.4) fL Neut % (Auto) (46-82) % Lymph % (Auto) (13-37) % [place] % (Auto) (4-12) % Eos % (Auto) (1.0-5.0) % Baso % (Auto) (0-2) % Neut # (Auto) (1.6-8.3) # Lymph # (Auto) (0.6-5.0) # [place] # (Auto) (0.0-1.3) # Eos # (Auto) (0.0-0.8) # Baso # (Auto) (0.0-0.2) # Sodium (135-145) mmol/L Potassium (3.5-5.3) mmol/L Chloride (100-110) mmol/L Carbon Dioxide (21-32) mmol/L BUN (7-18) mg/dL Creatinine (0.55-1.02) mg/dL Est Cr Clr Drug Dosing mL/min Estimated GFR (MDRD) (>60) BUN/Creatinine Ratio (9-20) Glucose (80-116) mg/dL Calcium (8.6-10.2) mg/dL C-Reactive Protein (0.5-0.9) mg/dL Urine Color Yellow (YELLOW) Urine Appearance Slightly cloudy (CLEAR) Urine pH 6.5 (5.0-6.5) Ur Specific [place] 1.015 (1.010-1.025) Urine Protein Negative (NEGATIVE) mg/dL Urine Glucose (UA) Normal (NORMAL) mg/dL Urine Ketones Negative (NEGATIVE) mg/dL Urine Occult Blood Large H (NEGATIVE) Urine Nitrite Negative (NEGATIVE) Urine Bilirubin Negative (NEGATIVE) Urine Urobilinogen 1 H (NEGATIVE) mg/dL Ur Leukocyte Esterase Negative (NEGATIVE) Urine RBC 5-10 H (0-5) Urine WBC 0-5 (0-5) Ur Squamous Epith Cells Moderate H (NS,R,O) Urine Bacteria Few H (NS) Urine Mucus Moderate H (NS) Meds: Medications Discontinued Medications Generic Name Dose Route Start Last Admin Trade Name Freq PRN Reason Stop Dose Admin Sodium Chloride 1,000 mls @ 999 mls/hr 08/06/20 03:28 08/06/20 03:54 Normal Saline IV 08/06/20 04:28 999 mls/hr .BOLUS ONE Administration Iopamidol 90 ml 08/06/20 04:55 08/06/20 05:17 Isovue-370 (76%) IV 08/06/20 04:56 90 ml . DIRECTED ONE Administration Ketorolac Tromethamine 30 mg 08/06/20 03:42 08/06/20 03:53 Toradol IVPUSH 08/06/20 03:43 30 mg ONETIME ONE Administration Ondansetron HCl 4 mg 08/06/20 04:00 08/06/20 03:55 Zofran IVPUSH 4 mg Q6H KURT Administration - Re-Assessments/Exams Free Text/Narrative Re-Assessment/Exam: 08/06/20 06:57 labs done pt was given IVF zofran and toradol , pain was better controlled discussed need to FU with surgeon will set up FU appointment next week 08/06/20 18:37 Departure - Departure Time of Disposition: 07:10 Disposition: Home, Self-Care 01 Condition: Fair Clinical Impression: Cholelithiasis - Discharge Information *PRESCRIPTION DRUG MONITORING PROGRAM REVIEWED*: Not Applicable *COPY OF PRESCRIPTION DRUG MONITORING REPORT IN PATIENT GAL: Not Applicable Prescriptions: Acetaminophen/HYDROcodone [[place] 325-5 MG] 1 tab PO Q4H PRN #20 tab PRN Reason: Pain (Severe 7-10) Ondansetron [Zofran ODT] 4 mg PO Q6H PRN #30 tab.dis PRN Reason: Nausea/Vomiting Instructions: Cholelithiasis, Esge-tu-Pegn, Gallbladder Eating Plan Referrals: PCP,None [Primary Care Provider] - Forms: ED Department Discharge Care Plan Goals: Call Dr. Rivera to set up a surgical appointment at [phone]. - My Orders Last 24 Hours: My Active Orders 08/06/20 03:46 Abdomen Pelvis w Cont [CT] Stat - Assessment/Plan Last 24 Hours: My Active Orders 08/06/20 03:46 Abdomen Pelvis w Cont [CT] Stat
[2020-08-06] MEDS ORDERED: Ondansetron 4 MG/2 ML SDV IVPUSH SCH (04:00)
[2020-08-06] MEDS ORDERED: Iopamidol 755 Mg/ML 100 ML Bottle IV ONE (04:55)
[2020-08-06 06:20] VITALS: BP 106/36; PULSE 51
== END 2020-08-06 07:13 | disposition home or self-care (01) ==
LOC: FB.ED 03:12
DX: K80.20 Calculus of gallbladder without cholecystitis without obstruction (principal)
CPT/HCPCS: 36415; 74177; 80048; 81001; 85025; 86140; 96361; 96374; 96375; 99284; J1885; J2405; J7030; Q9967

== ENCOUNTER 2020-08-17 07:33 | Day surgery (SDC) | payer MEDICAID ==
[~2020-08-17 07:33] MED LIST: Lactated Ringers 1,000 ML IV SCH; Sodium Chloride 0.9% 10 ML Syringe FLUSH PRN
[2020-08-17] MEDS ORDERED: HYDROmorphone 2 MG/ML SDV IV ONE (07:34)
[2020-08-17] MEDS ORDERED: diphenhydrAMINE 50 MG/ML SDV IVPUSH ONE (07:34)
[2020-08-17] MEDS ORDERED: Dexamethasone 4 MG/ML 5 ML MDV IVPUSH ONE (07:34)
[2020-08-17] MEDS ORDERED: Succinylcholine 200 MG/10 ML MDV IV ONE (07:34)
[2020-08-17] MEDS ORDERED: Neostigmine Methylsulfate 10 MG/10 ML MDV IVPUSH ONE (07:34)
[2020-08-17] MEDS ORDERED: Rocuronium 50 MG/5 ML Vial IVPUSH ONE (07:34)
[2020-08-17] MEDS ORDERED: Midazolam 1 MG/ML 2 ML SDV IV ONE (07:34)
[2020-08-17] MEDS ORDERED: fentaNYL 100 MCG/2 ML SDV IV ONE (07:34)
[2020-08-17] MEDS ORDERED: Glycopyrrolate 0.2 MG/ML 5 ML MDV IV ONE (07:34)
[2020-08-17] MEDS ORDERED: Ketorolac 30 MG/ML SDV IVPUSH ONE (07:34)
[2020-08-17] MEDS ORDERED: Propofol 200 MG/20 ML SDV IV ONE (07:34)
[2020-08-17] MEDS ORDERED: Ondansetron 4 MG/2 ML SDV IVPUSH ONE (07:34)
--- NOTE | 2020-08-17 09:22 | PCM.HPR ---
H & P Addendum review - H & P Addendum Review Date of Original H & P: 08/09/20 Date Reviewed: 08/17/20 Time Reviewed: 08:00 Patient was Examined: No Changes
--- NOTE | 2020-08-17 09:27 | PCM.OPNOTE ---
- General Post-Op/Procedure Note Date of Surgery/Procedure: 08/17/20 Operative Procedure(s): Lap hever Findings: Gallstones Pre Op Diagnosis: Symptomatic Cholelithiasis Post-Op Diagnosis: Same Anesthesia Technique: General ET Tube Primary Surgeon: Drew Renee Anesthesia Provider: Oksana Briggs Pathology: GB EBL in mLs: 5 Complications: None Condition: Good
[2020-08-17] MEDS ORDERED: Acetaminophen/HYDROcodone 325-5 MG Tab PO PRN (09:31)
[2020-08-17] MEDS ORDERED: Morphine 2 MG/ML SYRINGE IVPUSH PRN (09:31)
--- NOTE | 2020-08-17 14:13 | OR ---
DATE OF OPERATION: 08/17/2020 SURGEON: Drew Renee MD PREOPERATIVE DIAGNOSIS: Symptomatic cholelithiasis. POSTOPERATIVE DIAGNOSIS: Symptomatic cholelithiasis. PROCEDURE: Laparoscopic cholecystectomy. ANESTHESIA: General. DESCRIPTION OF PROCEDURE: The patient was brought to the operating room, where general endotracheal anesthesia was administered. The abdomen was prepped with ChloraPrep and draped sterilely. An infraumbilical incision was made and extended into the peritoneal cavity without difficulty. The Lise cannulator was introduced and pneumoperitoneum obtained. The remaining three 5 mm ports were placed in the usual positions. General exploration revealed the surface of the liver, stomach, gallbladder, bowel, and omentum to be normal in appearance. The gallbladder was grasped and retracted cephalad. The cystic duct and cystic artery were dissected free without difficulty. An enlarged cystic duct node was present which was dissected and reflected inferiorly so was not interfering with visualization. The cystic duct and cystic artery were each doubly clipped proximally and once distally and then transected. The gallbladder was removed from the bed of the liver without difficulty. No bleeding or bile leakage occurred. The gallbladder was brought part way through the umbilical incision and required opening and removal of several large stones before it could be completely removed. Once the gallbladder was removed, the right upper quadrant was thoroughly inspected and irrigated and return was clear and hemostasis assured. Clips were all in place. There was one posterior branch of the cystic artery that was clipped proximally and cauterized distally during the dissection. The ports were removed under direct vision and remained hemostatic. Umbilical fascia was closed with [id number] 0 Vicryl. Skin was closed with 4-0 Vicryl subcuticular sutures. Benzoin and Steri-Strips were placed and Band- Aids applied. The patient tolerated the procedure well. Blood loss less than 5 mL. She returned to Postanesthesia in stable condition. /[id number] FRANCIS/MONTSE
[2020-08-19 08:56] VITALS: BP 106/66; PULSE 61
== END 2020-08-17 12:45 | disposition home or self-care (01) ==
LOC: FB.SDS 07:33
PROVIDERS: ATTEND Surgery
DX: K80.10 Calculus of gallbladder with chronic cholecystitis without obstruction (principal)
CPT/HCPCS: 00790-QZ; 81025; 88304; A9270-GY; J0330; J1100; J1170; J1200; J1885; J2250; J2405; J2704; J2710; J3010; J3490; J7120

== ENCOUNTER 2020-08-18 12:12 | Emergency (ER) | payer MEDICAID ==
[2020-08-18] MEDS: Sodium Chloride 0.9% 1,000 ML IV ONE (12:35)
[2020-08-18] MEDS: Ondansetron 4 MG/2 ML SDV IVPUSH ONE (12:35)
--- NOTE | 2020-08-18 12:35 | EDM.PDOC ---
ED HPI GENERAL MEDICAL PROBLEM - General Stated Complaint: ABD PAIN/POST OP Time Seen by Provider: 08/18/20 12:17 Source of Information: Reports: Patient, Family History Limitations: Reports: No Limitations - History of Present Illness INITIAL COMMENTS - FREE TEXT/NARRATIVE: c/o postop pain pain her with and infant son h/o biliary colic x 2m, lap choly done by Dr Renee 24h ago, no BM yet, ate granola bar and toast yesterday, felt okay this AM, took hc/apap x 1, ate a pear stood up from table and had a sudden severe pain at op site, same pain as before, more intense, no radiation, Dr Caraballo directed her to come to ED pt tearful here labs 2m ago unremarkable except mild inc'd LFTs will recheck labs and do CT to r/o intra-abdominal bleeding, altho sudden onset more c/w a pinched nerve/omentum d/w her surgeon Dr Renee who said the surgery was routine, that she may have pain at the rectus muscle at the port site pt has had several pain c/o's in past, including GI pain, tearful and calling out with initiation of IV now R upper abdomen Pain Score (Numeric/FACES): 7 - Related Data Allergies Allergy/AdvReac Type Severity Reaction Status Date / Time No Known Allergies Allergy Verified 08/18/20 12:41 Home Meds: Home Meds Acetaminophen/HYDROcodone [[place] 325-5 MG] 1 tab PO Q4H PRN #20 tab 08/06/20 [Rx] oxyCODONE HCl/Acetaminophen [Oxycodone-Acetaminophen 5-325] 1 each PO Q6H #12 tablet 08/18/20 [Rx] Past Medical History - Past Health History Medical/Surgical History: Denies Medical/Surgical History HEENT History: Reports: None Cardiovascular History: Reports: None Respiratory History: Reports: None Gastrointestinal History: Reports: Cholelithiasis Genitourinary History: Reports: None [employer]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 Neurological History: Reports: None Psychiatric History: Reports: None Endocrine/Metabolic History: Reports: Obesity/BMI 30+ Hematologic History: Reports: None Immunologic History: Reports: None Oncologic (Cancer) History: Reports: None Dermatologic History: Reports: None - Infectious Disease History Infectious Disease History: Reports: Chicken Pox - Past Surgical History Head Surgeries/Procedures: Reports: None HEENT Surgical History: Reports: Oral Surgery Cardiovascular Surgical History: Reports: None Respiratory Surgical History: Reports: None Female Surgical History: Reports: D&C, Dilitation & Evacuation Endocrine Surgical History: Reports: None Neurological Surgical History: Reports: None Musculoskeletal Surgical History: Reports: None Oncologic Surgical History: Reports: None Dermatological Surgical History: Reports: None Social & Family History - Family History Family Medical History: Noncontributory OBGYN: Reports: Psychiatric: Reports: ADHD Other Psychiatric Family History: brother has ADHD Endocrine/Metabolic: Reports: Diabetes, type II Other Endocrine/Metabolic Family History: On mother's side of the family - Caffeine Use Caffeine Use: Reports: Soda ED ROS GENERAL - Review of Systems Review Of Systems: See Below Constitutional: Reports: No Symptoms. Denies: Fever, Chills, Weakness, Fatigue, Night Sweats, Diaphoresis HEENT: Reports: No Symptoms Respiratory: Reports: No Symptoms Cardiovascular: Reports: No Symptoms Endocrine: Reports: No Symptoms GI/Abdominal: Reports: Abdominal Pain. Denies: Nausea, Vomiting : Reports: No Symptoms Musculoskeletal: Reports: No Symptoms Skin: Reports: No Symptoms Neurological: Reports: No Symptoms Psychiatric: Reports: No Symptoms Hematologic/Lymphatic: Reports: No Symptoms Immunologic: Reports: No Symptoms ED EXAM, GI/ABD - Physical Exam Exam: See Below Exam Limited By: No Limitations General Appearance: Alert, WD/WN, Moderate Distress, Other (nontoxic, nonill, appears to have mild to mod pain, tearful, cooperative, answers questions, good eye contact) Eyes: Bilateral: Normal Appearance Head: Atraumatic, Normocephalic Neck: Normal Inspection, Supple, Non-Tender, Full Range of Motion. No: Lymphadenopathy (R), Lymphadenopathy (L) Respiratory/Chest: No Respiratory Distress, Lungs Clear, Normal Breath Sounds, Chest Non-Tender Cardiovascular: Regular Rate, Rhythm, No Edema, No Gallop, No JVD, No Murmur, No Rub GI/Abdominal Exam: Soft, Non-Tender, No Organomegaly, No Distention, No Mass, Other (ports sites with drsg in place, no drainage, no distention, BS present, no peritoneal sites, mild tender at op site c/w postop surgery) Back Exam: Normal Inspection, Full Range of Motion. No: CVA Tenderness (R), CVA Tenderness (L) Extremities: Normal Inspection, Normal Range of Motion, Non-Tender, No Pedal Edema, Normal Capillary Refill Neurological: Alert, Oriented, CN II-XII Intact, Normal Cognition, No Motor/Sensory Deficits Psychiatric: Anxious Skin Exam: Warm, Dry, Intact, Normal Color, No Rash Lymphatic: No Adenopathy Course - Vital Signs Last Recorded V/S: Last Vital Signs Temp 36.6 C 08/18/20 12:12 Pulse 72 08/18/20 13:05 Resp 18 08/18/20 13:05 BP 107/56 L 08/18/20 13:05 Pulse Ox 99 08/18/20 13:05 - Orders/Labs/Meds Labs: Laboratory Tests 08/18/20 08/18/20 Range/Units 12:25 12:25 WBC 9.6 (4.5-12.0) X10-3/uL RBC 4.69 (3.23-5.20) x10(6)uL Hgb 13.6 (11.5-15.5) g/dL Hct 40.7 (30.0-51.3) % MCV 86.9 (80-96) fL MCH 29.0 (27.7-33.6) pg MCHC 33.3 (32.2-35.4) g/dL RDW 13.6 (11.5-15.5) % Plt Count 383 H (125-369) X10(3)uL MPV 8.8 (7.4-10.4) fL Neut % (Auto) 66.8 (46-82) % Lymph % (Auto) 25.3 (13-37) % [place] % (Auto) 6.7 (4-12) % Eos % (Auto) 0 L (1.0-5.0) % Baso % (Auto) 1 (0-2) % Neut # (Auto) 6.5 (1.6-8.3) # Lymph # (Auto) 2.4 (0.6-5.0) # [place] # (Auto) 0.6 (0.0-1.3) # Eos # (Auto) 0.0 (0.0-0.8) # Baso # (Auto) 0.1 (0.0-0.2) # Sodium 140 (135-145) mmol/L Potassium 3.5 (3.5-5.3) mmol/L Chloride 102 (100-110) mmol/L Carbon Dioxide 25 (21-32) mmol/L BUN 17 (7-18) mg/dL Creatinine 0.8 (0.55-1.02) mg/dL Est Cr Clr Drug Dosing 77.22 mL/min Estimated GFR (MDRD) > 60 (>60) BUN/Creatinine Ratio 21.3 H (9-20) Glucose 106 (80-116) mg/dL Calcium 9.3 (8.6-10.2) mg/dL Total Bilirubin 0.5 (0.1-1.3) mg/dL AST 30 H D (5-25) IU/L ALT 61 H D (12-36) U/L Alkaline Phosphatase 132 H (56-112) IU/L Total Protein 7.8 (6.0-8.0) g/dL Albumin 3.7 (3.5-5.2) g/dL Globulin 4.1 g/dL Albumin/Globulin Ratio 0.9 Meds: Medications Discontinued Medications Generic Name Dose Route Start Last Admin Trade Name Freq PRN Reason Stop Dose Admin Hydromorphone HCl 1 mg 08/18/20 12:21 08/18/20 12:37 Dilaudid IVPUSH 08/18/20 12:22 1 mg ONETIME ONE Administration Sodium Chloride 1,000 mls @ 999 mls/hr 08/18/20 12:20 08/18/20 12:35 Normal Saline IV 08/18/20 13:20 999 mls/hr .BOLUS ONE Administration Iopamidol 100 ml 08/18/20 12:46 08/18/20 13:08 Isovue-370 (76%) IV 08/18/20 12:47 100 ml . DIRECTED ONE Administration Ketorolac Tromethamine 30 mg 08/18/20 13:29 08/18/20 13:32 Toradol IVPUSH 08/18/20 13:30 30 mg ONETIME ONE Administration Lorazepam 1 mg 08/18/20 12:51 08/18/20 13:05 Ativan IVPUSH 08/18/20 12:52 1 mg ONETIME ONE Administration Ondansetron HCl 4 mg 08/18/20 12:20 08/18/20 12:35 Zofran IVPUSH 08/18/20 12:21 4 mg ONETIME ONE Administration - Re-Assessments/Exams Free Text/Narrative Re-Assessment/Exam: 08/18/20 14:25 pt felt much better after Dilaudid 1 mg IV, Zofran 4 mg IV, Ativan 1 mg IV and Toradol 30 mg IV d/w Dr Caraballo's before d/c pt does not like how hc/apap makes here feel, however may take either hc/apap or oxycod/apap prn as needed as well as scheduled ibuprofen advised to soak in warm tub Departure - Departure Time of Disposition: 14:19 Disposition: Home, Self-Care 01 Condition: Good Clinical Impression: Postoperative pain - Discharge Information *PRESCRIPTION DRUG MONITORING PROGRAM REVIEWED*: Yes *COPY OF PRESCRIPTION DRUG MONITORING REPORT IN PATIENT GAL: No Prescriptions: oxyCODONE HCl/Acetaminophen [Oxycodone-Acetaminophen 5-325] 1 each PO Q6H #12 tablet Instructions: Acute Pain, Adult Additional Instructions: There is no evidence of infection, fluid collection, bleeding or other postop complications. For pain, take ibuprofen 200 mg 3 tabs 4 times a day for 5 days. Take on a scheduled basis. For pain, as needed, take oxycodone with acetaminophen 5/325 mg 1 tab every 6 hours as needed. May also take a hydrocodone with acetaminophen 5/325 mg if needed. For pain and spasm and cramping, take diphenhydramine (Benadryl) 25 mg 2 tabs every [address] Renee in 5 days as scheduled. Return to Emergency Department or Walk-In Clinic if you feel worse before then. Sepsis Event Note (ED) - Focused Exam Vital Signs: Vital Signs Temp Pulse Resp BP Pulse Ox 08/18/20 13:05 72 18 107/56 L 99 08/18/20 12:12 36.6 C 102 H 22 H 151/86 H 99
[2020-08-18] MEDS: HYDROmorphone 2 MG/ML SDV IVPUSH ONE (12:37)
[2020-08-18] MEDS: LORazepam 2 MG/ML SDV IVPUSH ONE (13:05)
[2020-08-18] MEDS: Iopamidol 755 Mg/ML 100 ML Bottle IV ONE (13:08)
[2020-08-18 13:19] VITALS: BP 107/56; PULSE 72
[2020-08-18] MEDS: Ketorolac 30 MG/ML SDV IVPUSH ONE (13:32)
--- NOTE | 2020-08-18 13:47 | CT ---
INDICATION: Sudden severe post-op pain at cholecystectomy site. CT ABDOMEN AND PELVIS WITH CONTRAST: Spiral 3.75 mm axial sections were obtained through the abdomen and pelvis with 100 mL Isovue-370 at 2 mL per second 08/18/20 and compared with 08/06/20. Total exam DLP was 884.67 mGy-cm. The lower lung king and pleural spaces appeared normal. The heart remains normal in size. No pericardial effusion was seen. There are several bubbles of free air noted at the dome of the diaphragm appearing to be defects in the liver due to partial volume artifact. More inferiorly a few bubbles of free air are noted ventrally at the anterior abdominal wall. There has been interval cholecystectomy with clips at the cystic duct and gallbladder bed. At the gallbladder bed there is a small collection of fluid suggested - an organized abscess formation is not suggested by this appearance. There is now noted free fluid in the posterior cul-de-sac which could also be related to the recent surgery. The urinary bladder wall appears slightly thickened raising question of cystitis - correlated clinically. No evidence of bowel obstruction was identified. There is again no definite evidence of appendicitis. The kidneys and adrenal glands remain normal in appearance. The spleen and pancreas appeared normal. The common bile duct appeared normal in caliber at the head of the pancreas, but is slightly more prominent than on the previous study likely on the basis of cholecystectomy. The liver appeared to be normal allowing for partial volume effect mentioned above. No retroperitoneal masses were identified. No additional organomegaly, mass lesions, or other abnormal fluid collections were identified. IMPRESSION: 1. Postsurgical changes compatible with cholecystectomy. There is a small amount of fluid at the gallbladder bed most likely a postsurgical finding rather than a definite abscess formation. Also noted were a few bubbles of free air at the dome of the liver and in the ventral abdomen - anterior wall. 2. No finding to strongly suggest peritonitis and no gross free air was seen, there being only minimal bubbles as noted above compatible with postsurgical finding. The free fluid in the posterior cul-de-sac most likely is related to the recent surgery also. 3. CT abdomen and pelvis with IV contrast otherwise unremarkable. Report was called to Dr. Okeefe at 1320 hours. [facility]
== END 2020-08-18 14:43 | disposition home or self-care (01) ==
LOC: FB.ED 12:12
DX: G89.18 Other acute postprocedural pain (principal); E66.9 Obesity, unspecified; Z68.37 Body mass index [BMI] 37.0-37.9, adult
CPT/HCPCS: 36415; 74177; 80053; 85025; 96374; 96375; 99284; J1170; J1885; J2060; J2405; J7030; Q9967

== ENCOUNTER 2023-12-27 19:48 | Emergency (ER) | payer MEDICAID ==
[2023-12-27 20:11] VITALS: BP 132/75; PULSE 92
[2023-12-27 20:43] LABS: INFLUENZA A NAA NEGATIVE (NEGATIVE); INFLUENZA B NAA POSITIVE (NEGATIVE); RESPIRATORY SYNCYTIAL VIR NAA NEGATIVE (NEGATIVE)
[2023-12-27 20:45] LABS: CORONAVIRUS COVID-19 NAA NEGATIVE (NEGATIVE)
[2023-12-27] MEDS: Oseltamivir 75 MG Cap PO ONE (21:06)
== END 2023-12-27 21:16 | disposition home or self-care (01) ==
LOC: FB.ED 19:48
DX: J10.1 Influenza due to other identified influenza virus with other respiratory manifestations (principal); F17.210 Nicotine dependence, cigarettes, uncomplicated; E66.9 Obesity, unspecified; Z79.899 Other long term (current) drug therapy
CPT/HCPCS: 0241U; 87651-QW; 99283; A9270-GY

== ENCOUNTER 2025-04-13 17:01 | Emergency (ER) | payer BC, MEDICAID ==
[2025-04-13 17:36] LABS: BASOPHILS ABSOLUTE AUTO 0.1 x10-3/uL (0.0-0.1); BASOPHILS PERCENT AUTO 0.8 % (0.2-1.5); EOSINOPHILS ABSOLUTE AUTO 0.2 x10-3/uL (0.0-0.8); HEMOGLOBIN 13.7 g/dL (11.4-15.5); LYMPHOCYTES ABSOLUTE AUTO 2.7 x10-3/uL (1.0-4.4); LYMPHOCYTES PERCENT AUTO 39.2 % (18.4-52.1); MEAN CORPUSCULAR HEMOGLOBIN 28.9 pg (23.9-33.9); MEAN CORPUSCULAR HGB CONC 34.3 g/dL (31.9-34.8); MEAN CORPUSCULAR VOLUME 84.1 fL (76.7-100.5); MEAN PLATELET VOLUME 9.1 fL (7.1-12.4); MONOCYTES ABSOLUTE AUTO 0.4 x10-3/uL (0.3-1.0); MONOCYTES PERCENT AUTO 5.1 % (4.4-15.7); NEUTROPHILS ABSOLUTE AUTO 3.6 x10-3/uL (1.5-6.3); NEUTROPHILS PERCENT AUTO 51.9 % (30.8-76.2); PLATELET COUNT,PLT 317 x10(3)uL (151-488); RED BLOOD CELL COUNT 4.75 x10(6)uL (3.60-5.20); RED CELL DISTRIBUTION WIDTH 14.4 % (12.3-16.5)
[2025-04-13] MEDS: Ondansetron 4 MG Tab.DIS PO ONE (17:40)
[2025-04-13 17:44] VITALS: BP 125/77; PULSE 61
[2025-04-13 17:46] LABS: BLOOD UREA NITROGEN,BUN 11 mg/dL (7-18); BUN/CREATININE RATIO 15.7 (9-20); CALCIUM 8.9 mg/dL (8.6-10.2); CARBON DIOXIDE,CO2 23 mmol/L (21-32); CHLORIDE,CL 104 mmol/L (100-110); CREATININE 0.7 mg/dL (0.55-1.02); EST CRCL DRUG DOSING (CG) 85.18 mL/min; ESTIMATED GFR 120 mL/min (>60); GLUCOSE RANDOM 98 mg/dL (80-116); POTASSIUM,K 3.4 mmol/L (3.5-5.3); SODIUM,NA 138 mmol/L (135-145)
[2025-04-13 17:49] LABS: A/G RATIO 0.9; ALANINE AMINOTRANSFERASE,ALT 29 U/L (12-36); ALBUMIN 3.3 g/dL (3.5-5.2); ALKALINE PHOSPHATASE 93 IU/L (56-112); ASPARTATE AMNIOTRANSFERASE,AST 17 IU/L (5-25); BILIRUBIN TOTAL 0.7 mg/dL (0.1-1.3); PROTEIN TOTAL,TP 7.2 g/dL (6.0-8.0)
[2025-04-13] MEDS: Prochlorperazine 5 MG Tab PO STA (18:24)
== END 2025-04-13 18:55 | disposition home or self-care (01) ==
LOC: FB.ED 17:01
DX: R42 Dizziness and giddiness (principal); E66.9 Obesity, unspecified; Z68.35 Body mass index [BMI] 35.0-35.9, adult
CPT/HCPCS: 36415; 80053; 84484; 85025; 93005; 99285; Q0162; Q0164

== ENCOUNTER 2025-07-22 01:33 | Emergency (ER) | payer MEDICAID ==
[2025-07-22] MEDS ORDERED: Acetaminophen/oxyCODONE 325-5 MG Tab PO ONE (01:34)
[2025-07-22] MEDS ORDERED: Sodium Chloride 0.9% 10 ML Syringe FLUSH PRN (01:55)
[2025-07-22] MEDS: Ketorolac 30 MG/ML SDV IVPUSH ONE (02:04)
[2025-07-22 02:11] LABS: GLUCOSE,URINE NORMAL (NORMAL); OCCULT BLOOD,URINE LARGE (NEGATIVE)
[2025-07-22 02:12] LABS: APPEARANCE,URINE CLOUDY (CLEAR)
[2025-07-22 02:12] LABS: BLOOD UREA NITROGEN,BUN 15 mg/dL (7-18); CARBON DIOXIDE,CO2 27 mmol/L (21-32); CHLORIDE,CL 107 mmol/L (100-110); CREATININE 1.3 mg/dL (0.55-1.02); ESTIMATED GFR 57 mL/min (>60); GLUCOSE RANDOM 101 mg/dL (80-116); POTASSIUM,K 3.6 mmol/L (3.5-5.3); SODIUM,NA 141 mmol/L (135-145)
[2025-07-22 02:13] LABS: SQUAMOUS EPITHELIAL CELLS,UR FEW (NS,R,O)
[2025-07-22 02:13] LABS: BASOPHILS ABSOLUTE AUTO 0.0 x10-3/uL (0.0-0.1); BASOPHILS PERCENT AUTO 0.5 % (0.2-1.5); EOSINOPHILS ABSOLUTE AUTO 0.2 x10-3/uL (0.0-0.8); EOSINOPHILS PERCENT AUTO 2.0 % (0.6-8.1); LYMPHOCYTES ABSOLUTE AUTO 1.7 x10-3/uL (1.0-4.4); LYMPHOCYTES PERCENT AUTO 17.5 % (18.4-52.1); MEAN PLATELET VOLUME 8.7 fL (7.1-12.4); MONOCYTES ABSOLUTE AUTO 0.5 x10-3/uL (0.3-1.0); MONOCYTES PERCENT AUTO 4.9 % (4.4-15.7); NEUTROPHILS ABSOLUTE AUTO 7.2 x10-3/uL (1.5-6.3); NEUTROPHILS PERCENT AUTO 75.1 % (30.8-76.2); PLATELET COUNT,PLT 366 x10(3)uL (151-488); RED BLOOD CELL COUNT 4.41 x10(6)uL (3.60-5.20); RED CELL DISTRIBUTION WIDTH 14.7 % (12.3-16.5); WHITE BLOOD CELL COUNT,WBC 9.6 x10-3/uL (3.0-10.3)
[2025-07-22] MEDS ORDERED: Naloxone 0.4 MG/ML SDV IVPUSH PRN (02:17)
[2025-07-22 02:18] LABS: A/G RATIO 0.8; ALANINE AMINOTRANSFERASE,ALT 32 U/L (12-36); ASPARTATE AMNIOTRANSFERASE,AST 22 IU/L (5-25); BILIRUBIN TOTAL 0.4 mg/dL (0.1-1.3); PROTEIN TOTAL,TP 7.3 g/dL (6.0-8.0)
[2025-07-22] MEDS: Iopamidol 755 Mg/ML 100 ML Bottle IV SCH (02:40)
[2025-07-22 03:44] VITALS: BP 143/81; PULSE 86
== END 2025-07-22 03:30 | disposition home or self-care (01) ==
LOC: FB.ED 01:33
DX: K52.9 Noninfective gastroenteritis and colitis, unspecified (principal); F17.210 Nicotine dependence, cigarettes, uncomplicated
CPT/HCPCS: 36415; 74177; 80053; 81001; 81025; 83690; 85025; 87086; 87088; 96361; 96374; 96375; 99284; A9270; J0696; J1885; J2270; J7030; Q9967